=== PATIENT | female | born 1930 | race Two or more races ===

== ENCOUNTER 2017-03-07 13:27 | Emergency (ER) | payer OTHER ==
[2017-03-07 13:32] VITALS: BP 170/90; PULSE 99; TEMP 98.7; BMI 25.7
--- NOTE | 2017-03-07 15:41 | PDOC ---
History of Present Illness - General Chief Complaint: Pain Stated Complaint: RT ANKLE PAIN Time Seen by Provider: 03/07/17 14:41 History Source: Patient Exam Limitations: No Limitations - History of Present Illness Initial Comments: 03/07/17 15:31 87-year-old female presents to the ED with complaints of an intermittent pain to the right foot and right ankle for the past 2 years. Patient states about 8 yrs ago had fractured it in gin which she did not receive surgical repair for. She states pain is worsened with movement and in the a.m. hours normally relieved with time and Motrin. Patient states has not seen a primary care physician for the above since she is in the process of switching her provider. Timing/Duration: getting worse Severity: mild Associated Symptoms: reports: denies symptoms Past History - Past Medical History Allergies/Adverse Reactions: Allergies Allergy/AdvReac Type Severity Reaction Status Date / Time No Known Allergies Allergy Verified 03/07/17 13:28 Home Medications: Ambulatory Orders Levothyroxine Sodium [Levoxyl] 50 mcg PO ASDIR 03/07/17 Lisinopril/Hydrochlorothiazide [Lisinopril-Hctz 20-12.5 mg Tab] 1 each PO ASDIR 03/07/17 Metoprolol Succinate [Toprol Xl -] 100 mg PO DAILY 03/07/17 Simvastatin 20 mg PO ASDIR 03/07/17 COPD: No HTN: Yes Hypercholesterolemia: Yes - Surgical History Cholecystectomy: Yes - Suicide/Smoking/Psychosocial Hx Smoking History: Never smoked Have you smoked in the past 12 months: No Information on smoking cessation initiated: No Hx Alcohol Use: No Drug/Substance Use Hx: No Substance Use Type: None Patient Lives Alone: No Review of Systems - Review of Systems Able to Perform ROS?: Yes Constitutional: No: Symptoms Reported Musculoskeletal: Yes: Joint Pain Integumentary: No: Symptoms Reported Neurological: No: Symptoms reported *Physical Exam - Vital Signs Last Vital Signs Temp Pulse Resp BP Pulse Ox 98.7 F 99 H 18 170/90 100 03/07/17 13:29 03/07/17 13:29 03/07/17 13:29 03/07/17 13:29 03/07/17 13:29 - Physical Exam General Appearance: Yes: Nourished, Appropriately Dressed. No: Apparent Distress Extremity: positive: Normal Capillary Refill, Normal Inspection, Normal Range of Motion, Tender (over the lateral aspect of right malleolus and fifth midshaft of metatarsal) Integumentary: positive: Normal Color, Warm, Moist Neurologic: positive: Motor Strength 5/5 ED Treatment Course - RADIOLOGY Radiology Studies Ordered: Category Date Time Status ANKLE & FOOT-RIGHT* [RAD] Stat Radiology 03/07/17 15:09 Ordered Medical Decision Making - Medical Decision Making 03/07/17 15:48 Patient with intermittent right ankle and right foot pain over the past few years worsening severity recently causing her pain more in the a.m. hours and with movement. Patient Had no crepitus or deformity but did have tenderness over the lateral aspect of right ankle and right fifth metatarsal. Patient ordered for foot and ankle x-ray. 03/07/17 16:04 X-ray of the foot shows no sign of fracture, subluxation or bone destruction. The mortise is intact nasal sinus swelling, foreign body or soft tissue air. There is calcaneal spurring. Patient would likely arthritic changes. Patient will be discharged home with recommendations to take Motrin follow up with primary care physician. *DC/Admit/Observation/Transfer Diagnosis at time of Disposition: Right foot pain - Discharge Dispostion Disposition: HOME Condition at time of disposition: Good - Referrals Referrals: Maria Fernanda Washington MD [Primary Care Provider] - - Patient Instructions Printed Discharge Instructions: DI for Foot Pain Additional Instructions: May take Motrin or Tylenol for discomfort. Try applying a warm heating pad to alleviate discomfort or a warm bath. Please follow-up with the primary care physician to discuss today's visit. - Post Discharge Activity
== END 2017-03-07 16:09 | disposition home or self-care (01) ==
LOC: JERFT 13:27
DX: M25.571 Pain in right ankle and joints of right foot (principal); Z87.81 Personal history of (healed) traumatic fracture; I10 Essential (primary) hypertension; E78.00 Pure hypercholesterolemia, unspecified
CPT/HCPCS: 73610-TC-RT; 73630-TC-RT; 99281-25